=== PATIENT | male | born 1960 ===

== ENCOUNTER 2018-03-31 13:42 | Emergency (ER) | payer BC ==
[2018-03-31] MEDS ORDERED: Sodium Chloride 0.9% 1,000 ML IV STA (14:27)
--- NOTE | 2018-03-31 14:39 | C.PDOC ---
History Of Present Illness 57 y/o male presents to ED with c/o abdominal pain since last night associated with nausea and hematuria. Patient states pain is intermittent and is consistent with hematuria. Patient reports subjective fever and denies vomiting , diarrhea, dysuria or any other complaints at this time. Time Seen by Provider: 03/31/18 14:15 Chief Complaint (Nursing): Abdominal Pain History Per: Patient History/Exam Limitations: no limitations Onset/Duration Of Symptoms: Days Current Symptoms Are (Timing): Still Present Location Of Pain/Discomfort: Diffuse Past Medical History Reviewed: Historical Data, Nursing Documentation, Vital Signs Vital Signs: Last Vital Signs Temp 98.7 F 03/31/18 14:01 Pulse 64 03/31/18 15:41 Resp 18 03/31/18 15:41 BP 136/77 03/31/18 15:41 Pulse Ox 98 03/31/18 17:20 - Medical History PMH: No Chronic Diseases Surgical History: Appendectomy Family History: States: No Known Family Hx - Social History Hx Alcohol Use: No Hx Substance Use: No - Immunization History Hx Tetanus Toxoid Vaccination: No Hx Influenza Vaccination: No Hx Pneumococcal Vaccination: No Review Of Systems Constitutional: Negative for: Fever, Chills Gastrointestinal: Positive for: Nausea, Abdominal Pain. Negative for: Vomiting , Diarrhea Genitourinary: Positive for: Hematuria. Negative for: Dysuria Skin: Negative for: Rash Physical Exam - Physical Exam Additional Physical Exam Comments: Constitutional: No acute distress. Head: Normocephalic. Atraumatic. Eyes: PERRL. ENT: Moist mucous membranes. Neck: Supple. Cardiovascular: Regular rate. Radial pulse 2+ bilaterally. Chest: No tenderness. Respiratory: Clear to auscultation bilaterally. GI: Soft. Suprapubic tenderness Nondistended. No rebound No guarding Back: Left CVA tenderness Musculoskeletal: No tenderness or swelling of extremities. Skin: No rash. Neurologic: Alert, no focal deficit. ED Course And Treatment - Laboratory Results Result Diagrams: 03/31/18 15:03 03/31/18 15:03 O2 Sat by Pulse Oximetry: 98 (RA) Pulse Ox Interpretation: Normal - CT Scan/US CT abd/pelvis Other Rad Studies (CT/US): Read By Radiologist, Radiology Report Reviewed CT/US Interpretation: PROCEDURE: CT Abdomen and Pelvis without intravenous contrast. HISTORY: hematuria, flank pain. COMPARISON: None. TECHNIQUE: Without contrast.. Contrast dose: 0. Radiation dose: Total exam DLP = 404.65 mGy-cm. This CT exam was performed using one or more of the following dose reduction techniques: Automated exposure control, adjustment of the mA and/or kV according to patient size, and/or use of iterative reconstruction technique. FINDINGS: LOWER THORAX: Unremarkable. LIVER: Unremarkable. No gross lesion or ductal dilatation. GALLBLADDER AND BILE DUCTS: Unremarkable. PANCREAS: Unremarkable. No gross lesion or ductal dilatation. SPLEEN: Unremarkable. ADRENALS: Unremarkable. No mass. KIDNEYS AND URETERS: Distal left ureteral calculus, just proximal to the ureterovesical junction, 5 mm diameter. No hydroureteronephrosis. No perinephric fluid. No renal calculus. No right ureteral calculus. No bladder calculus identified. VASCULATURE: Unremarkable. No aortic aneurysm. BOWEL: Sigmoid diverticulosis. No evidence of diverticulitis. No bowel obstruction. APPENDIX: Status post appendectomy. Surgical changes at cecal apex. PERITONEUM: Unremarkable. No free fluid. No free air. LYMPH NODES: Unremarkable. No enlarged lymph nodes. BLADDER: Unremarkable. REPRODUCTIVE: Normal prostate. BONES: Grade 1 retrolisthesis at L5-S1 with bilateral L5-S1 neural foraminal stenosis. No spondylolysis. No acute fracture. OTHER FINDINGS: None. IMPRESSION: 5 mm distal left ureteral calculus without hydroureteronephrosis or perinephric fluid. No other acute abnormality identified. Minor findings as above. Oblique but again stent but again it whether abutting or is a Duo review or will weakening chest x-ray than dependent right Disposition - Disposition Referrals: Rob Jaimes MD [Staff Provider] - Disposition: HOME/ ROUTINE Disposition Time: 17:33 Condition: STABLE Prescriptions: Ciprofloxacin [Cipro] 500 mg PO BID #14 tab Ibuprofen [Motrin] 600 mg PO Q6 #25 tab Ondansetron ODT [Zofran ODT] 4 mg PO Q8 #12 odt Tamsulosin [Flomax] 0.4 mg PO DAILY #5 cap Instructions: Kidney Stones in Adults Forms: [employer] (Citizen Of [place]) - Clinical Impression Clinical Impression: Kidney stone - Scribe Statement The provider has reviewed the documentation as recorded by the Catrachitoibjose Burns All medical record entries made by the Catrachitoibjose were at my direction and personally dictated by me. I have reviewed the chart and agree that the record accurately reflects my personal performance of the history, physical exam, medical decision making, and the department course for this patient. I have also personally directed, reviewed, and agree with the discharge instructions and disposition.
[2018-03-31] MEDS ORDERED: Sodium Chloride 0.9% 1,000 ML ONE (15:03)
[2018-03-31 15:15] LABS: BASO # 0.1 K/uL (0.0-0.2); BASO % 0.6 % (0.0-2.0); EOS # 0.4 K/uL (0.0-0.7); EOS % 4.2 % (0.0-4.0); HEMOGLOBIN 13.3 g/dL (12.0-18.0); LYMPH # 2.2 K/uL (1.0-4.3); LYMPH % 24.1 % (20.0-40.0); MEAN CORPUSCULAR HEMOGLOBIN 29.5 pg (27.0-31.0); MEAN CORPUSCULAR HGB CONC 33.5 g/dL (33.0-37.0); MEAN PLATELET VOLUME 6.8 fL (7.2-11.7); MONO # 0.7 K/uL (0.0-0.8); MONO % 7.9 % (0.0-10.0); NEUT # 5.8 K/uL (1.8-7.0); NEUT % 63.2 % (50.0-75.0); RBC 4.5 Mil/uL (4.40-5.90); RED CELL DISTRIBUTION WIDTH 14.4 % (11.5-14.5); WHITE BLOOD COUNT 9.2 K/uL (4.8-10.8)
[2018-03-31 15:26] LABS: ALB/GLOB RATIO 1.4 (1.0-2.1); ALBUMIN 3.7 g/dL (3.5-5.0); ALT/SGPT 33 U/L (21-72); AST/SGOT 28 U/L (17-59); BLOOD UREA NITROGEN 16 mg/dL (9-20); CALCIUM 8.1 mg/dl (8.6-10.4); GFR AFRICAN-AMERICAN > 60; GFR NON-AFRICAN AMERICAN > 60; LIPASE 67 U/L (23-300)
[2018-03-31 15:29] LABS: SQUAMOUS EPITHIAL < 1 /hpf (0-5); URINE BACTERIA RARE (<OCC); URINE BILIRUBIN NEGATIVE (NEGATIVE); URINE BLOOD 3+ (NEGATIVE); URINE COLOR Yellow (YELLOW); URINE GLUCOSE (UA) NORMAL (Normal); URINE PROTEIN NEGATIVE (NEGATIVE); URINE UROBILINOGEN NORMAL mg/dL (0.2-1.0)
[2018-03-31 15:32] LABS: URINE LEUKOCYTE ESTERASE 1+ Leu/uL (Negative)
[2018-03-31 15:33] LABS: URINE CLARITY SLHAZY (Clear)
[2018-03-31 15:42] VITALS: RESP 18
--- NOTE | 2018-03-31 17:19 | CT ---
PROCEDURE: CT Abdomen and Pelvis without intravenous contrast HISTORY: hematuria, flank pain COMPARISON: None. TECHNIQUE: Without contrast.. Contrast dose: 0 Radiation dose: Total exam DLP = 404.65 mGy-cm. This CT exam was performed using one or more of the following dose reduction techniques: Automated exposure control, adjustment of the mA and/or kV according to patient size, and/or use of iterative reconstruction technique. FINDINGS: LOWER THORAX: Unremarkable. LIVER: Unremarkable. No gross lesion or ductal dilatation. GALLBLADDER AND BILE DUCTS: Unremarkable. PANCREAS: Unremarkable. No gross lesion or ductal dilatation. SPLEEN: Unremarkable. ADRENALS: Unremarkable. No mass. KIDNEYS AND URETERS: Distal left ureteral calculus, just proximal to the ureterovesical junction, 5 mm diameter. No hydroureteronephrosis. No perinephric fluid. No renal calculus. No right ureteral calculus. No bladder calculus identified. VASCULATURE: Unremarkable. No aortic aneurysm. BOWEL: Sigmoid diverticulosis. No evidence of diverticulitis. No bowel obstruction. APPENDIX: Status post appendectomy. Surgical changes at cecal apex. PERITONEUM: Unremarkable. No free fluid. No free air. LYMPH NODES: Unremarkable. No enlarged lymph nodes. BLADDER: Unremarkable. REPRODUCTIVE: Normal prostate BONES: Grade 1 retrolisthesis at L5-S1 with bilateral L5-S1 neural foraminal stenosis. No spondylolysis. No acute fracture. OTHER FINDINGS: None. IMPRESSION: 5 mm distal left ureteral calculus without hydroureteronephrosis or perinephric fluid. No other acute abnormality identified. Minor findings as above. Oblique but again stent but again it whether abutting or is a Duo review or will weakening chest x-ray than dependent right
[2018-03-31 17:21] VITALS: O2SAT 98
[2018-03-31 17:47] VITALS: BP 154/68; PULSE 88; TEMP 98.8
== END 2018-03-31 17:48 | disposition home or self-care (01) ==
LOC: C.ER 13:42
DX: N20.0 Calculus of kidney (principal)
CPT/HCPCS: 74176; 80053; 81001; 83690; 85025; 87086; 96361; 96374; 99285; J1885; J7030